=== PATIENT | male | born 1965 | race Caucasian/White ===

== ENCOUNTER 2021-10-19 07:27 | Emergency (ER) | payer OTHER ==
[2021-10-19 10:12] LABS: HEMOGLOBIN 15.9 gm/dl (14.0-17.5); RED BLOOD COUNT 5.14 M/UL (4.20-5.50); WHITE BLOOD COUNT 14.1 K/UL (4.5-11.0)
[2021-10-19 10:35] LABS: BUN/CREATININE RATIO 13 (0-10)
[2021-10-19] MEDS ORDERED: FLOMAX0.4 MG PO (10:52)
[2021-10-19] MEDS ORDERED: TORADOL 10 MG T10 MG PO (10:52)
[2021-10-19] MEDS ORDERED: ZOFRAN4 MG PO (10:52)
[2021-10-19] MEDS ORDERED: PERCOCET 5/325 T1 EA PO (10:53)
== END 2021-10-19 11:10 | disposition home or self-care (01) ==
LOC: ER1 07:27
PROVIDERS: Physician Assistant
DX: N13.2 Hydronephrosis with renal and ureteral calculous obstruction (principal)
CPT/HCPCS: 80053; 81001; 85025; 96374; 96375; 99284; J1885; J2270; J2405